=== PATIENT | male | born 1940 | race Caucasian/White ===

== ENCOUNTER → 2024-01-29 09:30 | Outpatient (REF) | payer MEDICARE, BC, SELFPAY | LOC: DHCBS MAIN 09:30 | PROVIDERS: ATTENDING PHYSICIAN Internal Medicine Cardiovascular Disease; FAMILY PHYSICIAN Family Medicine | DX: I34.0 Nonrheumatic mitral (valve) insufficiency (principal) | CPT/HCPCS: 93306 ==

== ENCOUNTER → 2024-07-16 13:36 | Outpatient (REF) | payer MEDICARE, BC, SELFPAY | LOC: RAD 13:36 | PROVIDERS: ATTENDING PHYSICIAN Physician Assistant Medical; FAMILY PHYSICIAN Family Medicine | DX: M79.661 Pain in right lower leg (principal); M54.2 Cervicalgia | CPT/HCPCS: 72052; 93971 ==

== ENCOUNTER 2024-07-24 12:15 | Emergency (ER) | payer MEDICARE, BC, SELFPAY ==
[2024-07-24 12:36] VITALS: BP 150/69
--- NOTE | 2024-07-24 12:38 | ED.GENMED ---
ED Provider Triage
<Todd Thompson PA-C - Last Filed: 07/24/24 12:42>
-
Patient seen by provider in Triage?: Seen in Triage
Attestation: A medical screening examination has been initiated by a qualified medical provider. Based on the assessment performed at this time, it has been determined that an emergent medical condition may exist and the patient has been informed
that further medical evaluation and possible additional diagnostic testing may be needed.
HPI: 83-year-old male presenting to the emergency department for evaluation of 3 days of dark black stool. Patient is not having any pain. Denies any lightheadedness, dizziness, chest pain or shortness of breath. Patient has a noted heart rate in
the low 40s. He states that he normally has a low heart rate however based off of record review patient's heart rate is usually in the 70s when he has been in the ER. Based off of history and patient being anticoagulated on Brilinta patient was
brought back immediately to the ER for further evaluation.
GENERAL: Alert , in no apparent distress
EYE: No visual abnormalities.
NECK: Trachea midline
ENT: No visible abnormalities.
LUNGS: No acute respiratory distress
NEUROLOGICAL: Alert and oriented
SKIN: Skin intact. No visible changes.
MUSCULOSKELETAL: Moving extremities normally
PSYCH: Normal and appropriate interaction.
This is a medical evaluation conducted in person to initiate diagnostic evaluation and provide initial therapeutics. Please see further documentation by the treating clinician.
History of Present Illness
<Todd Thompson PA-C - Last Filed: 07/24/24 12:42>
General
Chief Complaint: Rectal Bleeding
Time Seen by Provider: 07/24/24 12:44
<Manuel Schmitt MD - Last Filed: 07/24/24 19:36>
General
Source: patient
Exam Limitations: none
History of Present Illness
History of Present Illness:
83-year-old male describing episodes of GI bleed. First described it as clots then described it as dark. Somewhat loose. Started 2 to 3 days ago. Currently being treated for presumed diverticulitis. He had some vague abdominal discomfort 5 days
ago. Was on Augmentin and steroids. He however stopped that because those symptoms resolved. No lightheadedness no abdominal pain currently. He is on Brilinta and aspirin.
Past History
<Todd Thompson PA-C - Last Filed: 07/24/24 12:42>
Past History
ED Past Medical History: None
ED Past Surgical History: None
Social History
Personal:
Living: with family
<Manuel Schmitt MD - Last Filed: 07/24/24 19:36>
Past History
ED Past Medical History: CAD
ED Past Surgical History: Appendectomy, Cardiac and Urological
Review of Systems
<Manuel Schmitt MD - Last Filed: 07/24/24 19:36>
Review of Systems
All Other Systems: Not applicable
Constitutional: Denies fever, fatigue or chills
ABD/GI: Denies abdominal pain
Phy Exam
<Manuel Schmitt MD - Last Filed: 07/24/24 19:36>
Physical Exam
Physical Exam:
GENERAL: Alert and oriented in no apparent distress
EYE: Orbits normal.
NECK: Supple,
CARDIAC: Regular rate and rhythm without any obvious murmurs. Occasional irregular beat
LUNGS: Clear breath sounds,normal
ABDOMEN: Soft, without focal tenderness or distention
NEUROLOGICAL: Alert and oriented , grossly non-focal
SKIN: Warm and dry, no rash or lesion, no discoloration, skin intact.
MUSCULOSKELETAL: No edema,no deformity.Good color
PSYCH: Normal and appropriate interaction.
Course
<Todd Thompson PA-C - Last Filed: 07/24/24 12:42>
Orders/Labs/Results
Orders:
Orders
07/24/24 12:42
IV Insert/Care/Rem.- Treatment PRN
07/24/24 12:52
Electrocardiogram (*1) Stat
Reason for Study: Other
Other Reason for Exam: GI Bleed
Cardiac Monitoring- Treatment ONCE
EKG- Treatment ONCE
IV Insert/Care/Rem.- Treatment PRN
07/24/24 13:02
Type+Screen Urgent
Complete Blood Count/With Diff Urgent
Comprehensive Metabolic Panel Urgent
PTT Urgent
Prothrombin Time Urgent
07/24/24 13:38
ABO2 Urgent
BBK Wristband Number:
Associate notified that ABO2 has been ordered: [id number]
Date: 07/24/24
Time: 13:16
Fire Prevention Chief ID: [id number]
Abnormal Lab Results
07/24/24
13:02
MPV 11.2 H fL
(7.4-10.4)
Absolute Neuts (auto) 6.8 H 10^3/uL
(1.4-6.5)
Lymphocytes % 19.1 L %
(20.5-51.1)
Potassium 5.2 H mmol/L
(3.5-5.1)
BUN 40 H mg/dl
(9-20)
Creatinine 1.5 H mg/dL
(0.7-1.3)
07/24/24 13:02
07/24/24 13:02
Vital Signs
Initial and Last Documented VS:
Initial Vital Signs
Temp Pulse Resp BP Pulse Ox
98.5 F 43 18 150/69 100
07/24/24 12:36 07/24/24 12:36 07/24/24 12:36 07/24/24 12:36 07/24/24 12:36
Last Documented Vital Signs
Temp Pulse Resp BP Pulse Ox
98.5 F 51 22 162/56 100
07/24/24 12:36 07/24/24 15:45 07/24/24 15:45 07/24/24 15:00 07/24/24 14:30
<Manuel Schmitt MD - Last Filed: 07/24/24 19:36>
Orders/Labs/Results
Orders:
Orders
07/24/24 12:42
IV Insert/Care/Rem.- Treatment PRN
07/24/24 12:52
Electrocardiogram (*1) Stat
Reason for Study: Other
Other Reason for Exam: GI Bleed
Cardiac Monitoring- Treatment ONCE
EKG- Treatment ONCE
IV Insert/Care/Rem.- Treatment PRN
07/24/24 13:02
Type+Screen Urgent
Complete Blood Count/With Diff Urgent
Comprehensive Metabolic Panel Urgent
PTT Urgent
Prothrombin Time Urgent
07/24/24 13:38
ABO2 Urgent
BBK Wristband Number:
Associate notified that ABO2 has been ordered: [id number]
Date: 07/24/24
Time: 13:16
Fire Prevention Chief ID: [id number]
Abnormal Lab Results
07/24/24
13:02
MPV 11.2 H fL
(7.4-10.4)
Absolute Neuts (auto) 6.8 H 10^3/uL
(1.4-6.5)
Lymphocytes % 19.1 L %
(20.5-51.1)
Potassium 5.2 H mmol/L
(3.5-5.1)
BUN 40 H mg/dl
(9-20)
Creatinine 1.5 H mg/dL
(0.7-1.3)
07/24/24 13:02
07/24/24 13:02
Vital Signs
Initial and Last Documented VS:
Initial Vital Signs
Temp Pulse Resp BP Pulse Ox
98.5 F 43 18 150/69 100
07/24/24 12:36 07/24/24 12:36 07/24/24 12:36 07/24/24 12:36 07/24/24 12:36
Last Documented Vital Signs
Temp Pulse Resp BP Pulse Ox
98.5 F 51 22 162/56 100
07/24/24 12:36 07/24/24 15:45 07/24/24 15:45 07/24/24 15:00 07/24/24 14:30
<Manuel Schmitt MD - Last Filed: 07/24/24 19:36>
MDM/Problems Addressed
Differential Diagnosis Includes:
Patient describing GI bleed. Based on history somewhat unsure whether this is upper or lower. Rectal exam pending. Labs in progress. Clinically stable.
<Manuel Schmitt MD - Last Filed: 07/24/24 19:36>
*Pulse Oximetry
Patient hypoxic: no
*EKG
Interpreted by ED Provider?: Yes
Interpretation: abnormal
Comparison EKG: changes noted
Heart Rate: 56
Rhythm: PVC's
[place]: normal axis
Interval: second degree mobitz II (Possibly third-degree)
QRS Pattern: normal QRS
Ischemia: non-specific ST changes
*Bristle Machine Operator Interpretation
Interpretation: abnormal
Heart Rate: 51
Rhythm: sinus and PVC's
*Critical Care Note
Total Time (30-74mins, 75-104mins- exclusive of procedures): 45
<Manuel Schmitt MD - Last Filed: 07/24/24 19:36>
Update Note
Update Note:
1515.... I have had multiple discussions with this patient. He had a recurrent episode of bright red rectal bleeding. With some clots. However he has remained clinically stable. I highly recommend that he stay. He is fully aware of the risk of
a life-threatening GI bleed at home. However multiple discussions to try to convince him to stay. He is still contemplating this. I did discuss the Brilinta with the patient. Stents was years ago. Cardiology felt reasonable to hold for 2 to 3
days
1640... EKGs and strips sent to cardiology. Patient is asymptomatic from his arrhythmia. Apparently has a history of this issue and they recommended pacemaker in the past. However I stressed to him things can change and this is currently a high
degree block which can be life-threatening. In addition his GI bleed can also be life-threatening. He is aware of both these issues, refuses to stay. He will follow-up with cardiology and with GI however. He is fully understanding.
ED Attending Note
<Todd Thompson PA-C - Last Filed: 07/24/24 12:42>
-
Portions of this chart may have been created with voice recognition software.� Occasional wrong word or��sound alike� substitutions may have occurred due to the inherent limitations of voice recognition software.
Discharge Plan
Departure
Patient Disposition: Home (Routine Discharge)
Date of Disposition: 07/24/24
Time of Disposition: 16:39
Patient with high blood pressure during this ER visit?: Yes
Discharge Problem:
GI bleed, Heart block, Renal insufficiency
Instructions: Gastrointestinal Bleeding (DC)
Prescriptions:
No Action
aspirin 81 MG tablet,delayed release (DR/EC)
81 mg PO DAILY Qty: 0 0RF
nitroglycerin 0.4 MG tablet, sublingual
0.4 mg sublingual [id number] PRN (Reason: chest pain) Qty: 30 2RF
atorvastatin 20 mg Tablet
20 mg PO QPM
Brilinta 60 mg Tablet
60 mg PO BID
Referrals:
Bolivar Corona MD [Active] - Next open appointment
Jeff Sarkar MD [Family Provider] -
Activity Restrictions/Additional Instructions:
The cardiology group wants to see you this coming Saturday at 2 PM [facility]
The GI group should call you for close follow-up
Please return immediately with any episodes of passing out lightheadedness increasing GI bleeding or if you change your mind about admission
Again, you should stay in the hospital for 2 theoretically life-threatening reasons. The GI bleed can be life-threatening as well as the heart block on your EKG. Please return immediately if you change your mind
Interventions
Interventions:
*Risk Screen - Suicide Last Done: 07/24/24 12:36
*General Assessment Last Done: 07/24/24 12:36
*Neglect/Abuse Screening Last Done: 07/24/24 12:36
*ED COVID-19 Vaccine History Last Done: 07/24/24 12:36
*Nursing Disposition Last Done: 07/24/24 16:45
KO-Hbsxdw-Ptliswthyg Assessment Last Done: 07/24/24 13:20
ED- Cardiac Assessment Last Done: 07/24/24 13:20
ED- Pulmonary Assessment Last Done: 07/24/24 13:20
Discharge Date and Time
Discharge Date/Time: 07/24/24 16:46
Print Language: [id number]
[2024-07-24 13:06] VITALS: BP 146/64
[2024-07-24 13:14] LABS: % Basophils 0.7 % (0-2); % Eosinophils 2.1 % (0-6); % Immature Granulocytes 0.2 % (0-0.5); % Lymphocytes 19.1 % (20.5-51.1); % Monocytes 5.4 % (1.7-9.3); % Neutrophils 72.5 % (42.2-75.2); Absolute Basophils 0.1 10^3/uL (0-0.2); Absolute Eosinophils 0.2 10^3/uL (0-0.7); Absolute Lymphocytes 1.8 10^3/uL (1.2-3.4); Absolute Monocytes 0.5 10^3/uL (0.1-0.6); Absolute Neutrophils 6.8 10^3/uL (1.4-6.5); Hematocrit 45.5 % (39.0-52.0); Hemoglobin 15.1 g/dL (13.0-18.0); Mean Corp Hgb Conc. 33.2 g/dL (33.0-37.0); Mean Corpuscular Hgb 30.2 pg (27.0-31.0); Mean Platelet Volume 11.2 fL (7.4-10.4); Nucleated Red Blood Cells % 0 % (-); Platelet Count 222 10^3/uL (130-400); Red Cell Dist. Width 12.7 % (11.5-14.5); White Blood Cell Count 9.4 10^3/uL (4.8-10.8)
[2024-07-24 13:15] VITALS: BP 145/58
[2024-07-24 13:24] LABS: APTT 29.9 Sec (23.4-35.0); INR 1.05; PT 13.5 Sec (11.4-14.6)
[2024-07-24 13:44] LABS: ALT (SGPT) 20 U/L (0-50); AST (SGOT) 27 U/L (17-59); Albumin 4.8 g/dl (3.5-5.0); Alkaline Phosphatase 82 U/L (38-126); Blood Urea Nitrogen 40 mg/dl (9-20); Calcium 10.2 mg/dl (8.4-10.2); Carbon Dioxide 25 mmol/L (22-30); Chloride 104 mmol/L (98-107); Estimated Creatinine Clearance 36 ml/min; Glucose 93 mg/dl (70-99); Potassium 5.2 mmol/L (3.5-5.1); Sodium 142 mmol/L (135-145); Total Protein 7.7 g/dl (6.3-8.2); eGFR 46.48
[2024-07-24 14:02] VITALS: BP 174/64
[2024-07-24 14:22] VITALS: BP 155/70
[2024-07-24 15:00] VITALS: BP 162/56
== END 2024-07-24 16:46 | disposition home or self-care (01) ==
LOC: EMR 12:15
PROVIDERS: Physician Assistant Medical; EMERGENCY PHYSICIAN Emergency Medicine; FAMILY PHYSICIAN Family Medicine
DX: K92.2 Gastrointestinal hemorrhage, unspecified (principal); I45.9 Conduction disorder, unspecified; N28.9 Disorder of kidney and ureter, unspecified; I25.10 Atherosclerotic heart disease of native coronary artery without angina pectoris; Z79.02 Long term (current) use of antithrombotics/antiplatelets; Z90.49 Acquired absence of other specified parts of digestive tract
CPT/HCPCS: 99283; 80053; 85025; 85610; 85730; 86850; 86900; 86901; 93005

== ENCOUNTER → 2024-08-04 15:21 | Outpatient (REF) | payer MEDICARE, BC, SELFPAY | LOC: HWRAD 15:21 | PROVIDERS: ATTENDING PHYSICIAN Physician Assistant Medical | DX: R07.81 Pleurodynia (principal) | CPT/HCPCS: 71101 ==

== ENCOUNTER → 2025-07-19 13:17 | Outpatient (REF) | payer MEDICARE, BC, SELFPAY | LOC: RAD 13:17 | PROVIDERS: ATTENDING PHYSICIAN Family Medicine | DX: M79.671 Pain in right foot (principal) | CPT/HCPCS: 73610; 73630 ==

== ENCOUNTER → 2025-09-27 10:18 | Outpatient (REF) | payer MEDICARE, BC, SELFPAY | LOC: RCS 10:18 | PROVIDERS: ATTENDING PHYSICIAN Internal Medicine Cardiovascular Disease; FAMILY PHYSICIAN Family Medicine | DX: I34.0 Nonrheumatic mitral (valve) insufficiency (principal) | CPT/HCPCS: 93306 ==